=== PATIENT | male | born 1990 | race Hispanic/Latino ===

== ENCOUNTER 2017-08-14 17:56 | Emergency (ER) | payer MEDICARE ==
[2017-08-14] MEDS ORDERED: ONDANSETRON HCL 4 MG/2 ML VIAL ONE (18:37)
[2017-08-14] MEDS ORDERED: KETOROLAC TROMETHAMINE 30MG/ML ONE (18:37)
[2017-08-14 18:45] LABS: BASOPHILS % (AUTO) 0.3 % (0.0-5.0); EOSINOPHILS % (AUTO) 0.1 % (0.0-8.0); HEMATOCRIT 44.5 % (42-54); LYMPHOCYTES % (AUTO) 7.9 % (21.0-51.0); MEAN CORPUSCULAR HEMOGLOBIN 30.4 pg (27.0-33.0); MEAN CORPUSCULAR HGB CONC 35.4 g/dL (32.0-36.0); MEAN CORPUSCULAR VOLUME 85.9 fL (79-99); MONOCYTES % (AUTO) 6.3 % (3.0-13.0); NEUTROPHILS % (AUTO) 85.4 % (40.0-77.0); PLATELET COUNT (AUTO) 234 K/uL (130-400); RED BLOOD CELL COUNT(AUTO) 5.18 MIL/uL (4.50-6.20); RED CELL DISTRIBUTION WIDTH 13.6 % (11.0-15.5); WHITE BLOOD COUNT (AUTO) 15.5 K/uL (4.8-10.8)
[2017-08-14] MEDS ORDERED: SODIUM IV SCH (19:00)
[2017-08-14] MEDS ORDERED: CHLORIDE IV SCH (19:00)
[2017-08-14] MEDS ORDERED: VALPROIC ACID IV SCH (19:00)
[2017-08-14 19:16] LABS: ALBUMIN 3.4 g/dL (3.5-5.0); BILIRUBIN,TOTAL 0.7 mg/dL (0.2-1.0); CREATININE 1.3 mg/dL (0.5-1.5); MAGNESIUM 2.2 mg/dL (1.80-2.40); TOTAL PROTEIN, SERUM 6.3 g/dL (6.0-8.3)
[2017-08-14 19:18] LABS: POTASSIUM 2.9 mmol/L (3.5-5.1)
[2017-08-14] MEDS ORDERED: POTASSIUM BICARB/CIT AC 25 MEQ TABLET.EFF ONE (19:22)
[2017-08-14 20:04] LABS: BILIRUBIN,URINE Negative (NEGATIVE); COLOR,URINE Yellow (YELLOW); GLUCOSE, URINE (UA) Negative (NEGATIVE); KETONES,URINE Trace mg/dL (NEGATIVE); LEUKOCYTE ESTERASE ,URINE Negative (NEGATIVE); NITRATE,URINE Negative (NEGATIVE); OCCULT BLOOD,URINE Negative (NEGATIVE); PH,URINE 5.5 (5.0-8.0); PROTEIN,URINE Negative (NEGATIVE)
[2017-08-14 20:07] LABS: APPEARANCE,URINE CLOUDY (CLEAR)
[2017-08-14 20:11] LABS: AMPHET/METH SCREEN,URINE NEGATIVE (NEGATIVE); BARBITURATE SCREEN, URINE NEGATIVE (NEGATIVE); BENZODIAZEPINES SCREEN,URINE NEGATIVE (NEGATIVE); CANNABINOID SCREEN,URINE POSITIVE (NEGATIVE); COCAINE SCREEN,URINE POSITIVE (NEGATIVE); OPIATE SCREEN,URINE NEGATIVE (NEGATIVE); PHENCYCLIDINE SCREEN,URINE NEGATIVE (NEGATIVE)
[2017-08-14 20:16] LABS: AMORPHOUS SEDIMENT,UR Moderate /LPF (None Seen); BACTERIA,URINE Few /HPF (None Seen); RBC,URINE 0-1 /HPF (0-1); WBC,URINE 0-1 /HPF (0-1)
[2017-08-14 20:17] LABS: SQUAMOUS EPITHELIAL CELL,UR None Seen /HPF (0-2)
== END 2017-08-14 20:41 | disposition home or self-care (01) ==
LOC: EDH 17:56
DX: G40.89 Other seizures (principal); F14.10 Cocaine abuse, uncomplicated; E87.6 Hypokalemia; R51 Headache; F41.9 Anxiety disorder, unspecified; F31.9 Bipolar disorder, unspecified; Z72.0 Tobacco use
CPT/HCPCS: 36415; 70450; 80053; 80305; 81001; 82550; 83735; 85025; 87040 ×2; 87186; 96365; 96375; 99285; J1885; J2405

== ENCOUNTER 2024-07-11 02:02 | Observation (INO) | payer MEDICARE, OTHER ==
[2024-07-11] VITALS (23 sets, daily range): BP systolic 90–127; BP diastolic 47–81; PULSE 61–103; RESP 14–24; TEMP 97.7–99.3; O2SAT 95–98
[~2024-07-11] VITALS: Ht 170.2 cm; Wt 65.8 kg
[2024-07-11] MEDS: LACTATED RINGERS 1000ML 1,000 ML IV ONE (02:38)
[2024-07-11 02:39] LABS: BASOPHILS # (AUTO) 0.02 K/uL (0.00-0.20); BASOPHILS % (AUTO) 0.3 % (0.0-5.0); EOSINOPHILS # (AUTO) 0.03 K/uL (0.00-0.70); EOSINOPHILS % (AUTO) 0.4 % (0.0-8.0); IMMATURE GRANULOCYTE ABSOLUTE 0.03 K/uL (0-1); LYMPHOCYTES # (AUTO) 1.3 K/uL (1.0-4.8); LYMPHOCYTES % (AUTO) 18.2 % (21.0-51.0); MEAN CORPUSCULAR HEMOGLOBIN 30.4 pg (27.0-33.0); MEAN CORPUSCULAR HGB CONC 33.3 g/dL (32.0-36.0); MEAN CORPUSCULAR VOLUME 91.1 fL (79-99); MONOCYTES # (AUTO) 0.6 K/uL (0.1-1.0); MONOCYTES % (AUTO) 8.2 % (3.0-13.0); NEUTROPHILS % (AUTO) 72.5 % (40.0-77.0); PLATELET COUNT (AUTO) 184 K/uL (130-400); RED BLOOD CELL COUNT(AUTO) 4.28 MIL/uL (4.50-6.20); WHITE BLOOD COUNT (AUTO) 6.9 K/uL (4.8-10.8)
--- NOTE | 2024-07-11 02:45 | ERN ---
General Chief Complaint: Seizure Stated Complaint: SEIZURE X 2, < 1 MIN DURATION Time Seen by MD: 02:22 Source: patient, family History of Present Illness Initial Comments Patient is a 33-year-old male who has had seizures since he was 17 or 18 years o ld. He is seeing a neurologist right now. Currently he is taking Depakote. He has taken Keppra in the past but had a bad reaction to it, same for Dilantin. He has seizures in the past if he does not take his medications other things that can set it off are substance abuse drinking flashing lights. Patient was at a [employer] where there were flashing lights. Patient has an abrasion and a bruise on his left forehead. ights and he did say he had two beers. Timing/Duration: 1 hour Severity: mild Allergies: Coded Allergies: No Known Drug Allergies (Verified Allergy, Unknown, 08/14/17) Past Medical History Past Medical History: Seizure Past Surgical History: Other Surgical History Other: PNEUMOTHORAX ROS Dictation Patient has loss of memory over the times of the seizures. But other than that he has a negative review of systems. No constitutional symptoms, no fevers, no upper respiratory tract infections, no abdominal pain, no painful urination, no change in his bowel movements, no chills,. He moves all his extremities. Physical Exam General Appearance: (+) no apparent distress Orientation: (+) alert Head/Face Trauma: Yes Face Comment Patient has bruising and a hematoma on his left forehead. Eye: bilateral eye normal inspection, bilateral eye PERRL, bilateral eye EOMI Ear, Nose, Throat: (+) hearing grossly normal, (+) normal ENT inspection Neck: (+) normal inspection, (+) supple, (+) full range of motion Respiratory: (+) chest non-tender, (+) lungs clear, (+) well ventilated Heart: (+) regular, (+) no gallop Vascular: (+) no edema Gastrointestinal: (+) soft, (+) non-tender, (+) no organomegaly Genital: (+) normal exam Results Laboratory and Microbiology Lab and Micro Result Laboratory Tests Test 07/11/24 02:31 White Blood Count 6.9 K/uL (4.8-10.8) Red Blood Count 4.28 MIL/uL (4.50-6.20) L Hemoglobin 13.0 g/dL (14.0-18.0) L Hematocrit 39.0 % (42-54) L Mean Corpuscular Volume 91.1 fL (79-99) Mean Corpuscular Hemoglobin 30.4 pg (27.0-33.0) Mean Corpuscular Hemoglobin Concent 33.3 g/dL (32.0-36.0) Red Cell Distribution Width 13.0 % (11.0-15.5) Platelet Count 184 K/uL (130-400) Mean Platelet Volume 9.4 fL (7.5-10.5) Immature Granulocyte % (Auto) 0.4 % (0-1) Neutrophils (%) (Auto) 72.5 % (40.0-77.0) Lymphocytes (%) (Auto) 18.2 % (21.0-51.0) L Monocytes (%) (Auto) 8.2 % (3.0-13.0) Eosinophils (%) (Auto) 0.4 % (0.0-8.0) Basophils (%) (Auto) 0.3 % (0.0-5.0) Neutrophils # (Auto) 5.0 K/uL (1.8-7.7) Lymphocytes # (Auto) 1.3 K/uL (1.0-4.8) Monocytes # (Auto) 0.6 K/uL (0.1-1.0) Eosinophils # (Auto) 0.03 K/uL (0.00-0.70) Basophils # (Auto) 0.02 K/uL (0.00-0.20) Absolute Immature Granulocyte (auto 0.03 K/uL (0-1) Nucleated Red Blood Cells 0.0 % (0.0-0.19) Sodium Level 140 mmol/L (136-145) Potassium Level 3.8 mmol/L (3.5-5.1) Chloride Level 101 mmol/L (101-111) Carbon Dioxide Level 25 mmol/L (21-32) Blood Urea Nitrogen 10 mg/dL (7-18) Creatinine 1.2 mg/dL (0.5-1.3) Glomerular Filtration Rate Calc 81 mL/min (>90) Random Glucose 104 mg/dL (70-105) Total Calcium 9.2 mg/dL (8.5-10.1) Valproic Acid (Depakene) Level 65 mcg/mL (50-100) # MDM I will order a CBC and a BMP to check for infection and also for electrolyte disturbances is the inciting cause of his seizure. In additional check his Depakote levels I will do a urinary tox screen a blood alcohol level and a CT head. While the patient was in the emergency room he had another seizure. We gave him 2 mg of IV Versed. Patient's chest x-ray does shows some possible infiltrates on the left. Patient's head CT scan is negative for bleeds hydrocephalus elevated ICP or fracture. Patient's valproic acid was within therapeutic levels. Blood alcohol level is still pending. In either case patient needs to be admitted given that he has had three seizures while therapeutic on his medications and required Versed to control his latest seizure. I discussed the patient with the hospitalists who agree to admit him to the hospital. Blood alcohol level is still pending ED Course Orders Procedure Category Date Status Time Cbc With Differential LAB 07/11/24 Complete 02:23 Ct Head/Brain W/O CT 07/11/24 Taken Contrast 02:23 Lactated Ringers PHA 07/11/24 In Process 1000ml (Lactated 02:30 Basic Metabolic Panel LAB 07/11/24 Complete 02:23 Valproic Acid LAB 07/11/24 Complete 02:23 Chest 1vw RAD 07/11/24 Taken 02:28 Alcohol, Blood LAB 07/11/24 Logged 02:45 Midazolam Hcl (Versed) PHA 07/11/24 Complete 03:00 Midazolam Hcl (Versed) PHA 07/11/24 Complete 02:51 Current Medications Medications (Trade) Dose Ordered Sig/Niki Route PRN Reason Start Time Stop Time Status Last Admin Dose Admin Lactated Ringer's 1,000 ml @ 125 mls/hr ONCE ONCE IV 07/11/24 02:30 07/11/24 10:29 07/11/24 02:38 Midazolam HCl (Versed) 2 mg ONCE ONCE IVP 07/11/24 03:00 07/11/24 03:01 DC 07/11/24 02:55 Midazolam HCl (Versed) 2 mg STK-MED ONCE .ROUTE 07/11/24 02:51 07/11/24 02:52 DC Vital Signs Date Time Temp Pulse Resp B/P (MAP) Pulse Ox O2 Delivery O2 Flow Rate FiO2 07/11/24 02:16 98.2 87 14 110/75 100 Room Air* 0 21 07/11/24 02:03 98.1 101 16 122/68 98 Room Air 0 DX & DISP Disposition: Inpatient Departure Impression: Primary Impression: Seizure Condition: Stable Referrals: SELF,REFERRAL (PCP) KELSEY MILLER MD Jul 11, 2024 02:45
[2024-07-11 02:48] LABS: CREATININE 1.2 mg/dL (0.5-1.3); POTASSIUM 3.8 mmol/L (3.5-5.1)
--- NOTE | 2024-07-11 02:54 | NUR ---
PT HAD EPISODE OF SEIZURE LASTING APPROX 30 SECONDS. PER ED MD, ADMINISTER 2MG VERSED IVP X1.
[2024-07-11] MEDS: MIDAZOLAM HCL 1 MG/ML 2ML VIAL IVP ONE ×2 (02:55→05:07)
[2024-07-11] MEDS: MIDAZOLAM HCL 1 MG/ML 2ML VIAL ONE (02:55)
--- NOTE | 2024-07-11 02:59 | NUR ---
PT UNSTABLE, RN WILL CALL AND BRING PT WHEN PT IS STABLE
--- NOTE | 2024-07-11 04:57 | NUR ---
PT HAD ANOTHER EPISODE OF SEIZURE LASTING APPROX. 20SECONDS. HOSPITALIST RECTIFICATION PRINTER MADE AWARE. PER HOSPITALIST RECTIFICATION PRINTER, ADMINISTER 2MG VERSED IVP AND KEPPRA 1000MG IV.
[2024-07-11] MEDS: leveTIRACEtam 500 MG/5 ML SD VIAL IV ONE ×2 (05:05)
--- NOTE | 2024-07-11 05:44 | HP ---
[facility] HISTORY AND PHYSICAL Date of Service: Jul 11, 2024 Time of Service: 05:44 Attending/supervising physicians: Dr. Moore and Dr. Virk HISTORY OF PRESENT ILLNESS: Mr. Caballero is a 33-year-old male who presented to [facility] ED for evaluation of seizures. Per ED report the patient has had seizures in his17 or 18 years old and is seeing a neurologist. The patient is currently on Depakote. He has not been taking Keppra due to it making him very drowsy & feels like a zombie. Per mother at bedside the levels were high adverse effects and "he started acting like an 7-year-old". He also does not take Dilantin due to adverse effects. Per ED physician the patient's seizures are triggered with not taking his medications, alcohol, substance abuse, and flashing lights. ED physician that today the patient was added dance where he was drinking alcohol and they were flashing lights which triggered his seizures. On arrival to ED the patient reported he had two beers, had abrasions and bruising on his left forehead. ED provider reported that while the patient was in the ED he had another seizure and was given Versed2 mg IV. ED provider reports that given that the patient had three seizures while on therapeutic valproic acid and required Versed to control his latest seizure. The patient was admitted under the [facility] team with the diagnosis of seizure. CT head: No acute intracranial process identified. Chest x-ray: Negative. Valproic acid 65, serum alcohol <3. No urine has been provided. GFR 81. Hemoglobin 13.0, hematocrit 39.0, RBC 4.28. I went to assess the patient at bedside in ED 11. The patient was drowsy and is status post 2nd dose of Versed 2 mg administration due to his 2nd seizure in the ED. the patient's breathing was even, unlabored, in no distress. The mother was at bedside. I answered her multiple questions. I informed her of plan of care. She verbalized understanding and is in agreement with the plan. Plan and assessment are listed below. REVIEW OF SYSTEMS Unable to obtain ROS from patient due to drowsiness from Versed. PAST MEDICAL HISTORY: As mentioned above PAST SURGICAL HISTORY: Pneumothorax PAST SOCIAL HISTORY: Alcohol use FAMILY HISTORY: Noncontributory Coded Allergies: No Known Drug Allergies (Verified Allergy, Unknown, 08/14/17) PHYSICAL EXAM GENERAL APPEARANCE: The patient is awake, alert, and oriented, in no acute cardiopulmonary distress. NEUROLOGICAL: Drowsy s/p Versed. HEENT: Face is symmetric. Pupils are equal and reactive. Extraocular movements are intact. NECK: Supple. No JVD. No thyromegaly. No submental, submandibular, pre- /postauricular, occipital or supraclavicular lymphadenopathy. CHEST: Normal chest expansion. No Telemetry. LUNGS: Absence of any rales, rhonchi or any wheezing. CARDIOVASCULAR: Regular. S1 and S2 normal. No appreciable rubs, murmurs or gallops. ABDOMEN: Soft, nontender, and nondistended. There is no rebound, voluntary guarding, or rigidity. : Deferred. No Giraldo. EXTREMITIES: Non-edematous and not cyanotic. No clubbing. Good capillary refill. SKIN: No skin breakdown. Vital Sign (Last 24 Hours) 07/11/24 02:16 Temp 98.2 Pulse 87 Resp 14 B/P (MAP) 110/75 Pulse Ox 100 O2 Delivery Room Air* O2 Flow Rate 0 FiO2 21 LABS: Laboratory: Test 07/11/24 02:31 Range/Units White Blood Count 6.9 4.8-10.8 K/uL Red Blood Count 4.28 L 4.50-6.20 MIL/uL Hemoglobin 13.0 L 14.0-18.0 g/dL Hematocrit 39.0 L 42-54 % Mean Corpuscular Volume 91.1 79-99 fL Mean Corpuscular Hemoglobin 30.4 27.0-33.0 pg Mean Corpuscular Hemoglobin Concent 33.3 32.0-36.0 g/dL Red Cell Distribution Width 13.0 11.0-15.5 % Platelet Count 184 130-400 K/uL Mean Platelet Volume 9.4 7.5-10.5 fL Immature Granulocyte % (Auto) 0.4 0-1 % Neutrophils (%) (Auto) 72.5 40.0-77.0 % Lymphocytes (%) (Auto) 18.2 L 21.0-51.0 % Monocytes (%) (Auto) 8.2 3.0-13.0 % Eosinophils (%) (Auto) 0.4 0.0-8.0 % Basophils (%) (Auto) 0.3 0.0-5.0 % Neutrophils # (Auto) 5.0 1.8-7.7 K/uL Lymphocytes # (Auto) 1.3 1.0-4.8 K/uL Monocytes # (Auto) 0.6 0.1-1.0 K/uL Eosinophils # (Auto) 0.03 0.00-0.70 K/uL Basophils # (Auto) 0.02 0.00-0.20 K/uL Absolute Immature Granulocyte (auto 0.03 0-1 K/uL Nucleated Red Blood Cells 0.0 0.0-0.19 % Sodium Level 140 136-145 mmol/L Potassium Level 3.8 3.5-5.1 mmol/L Chloride Level 101 101-111 mmol/L Carbon Dioxide Level 25 21-32 mmol/L Blood Urea Nitrogen 10 7-18 mg/dL Creatinine 1.2 0.5-1.3 mg/dL Glomerular Filtration Rate Calc 81 >90 mL/min Random Glucose 104 70-105 mg/dL Total Calcium 9.2 8.5-10.1 mg/dL Valproic Acid (Depakene) Level 65 # 50-100 mcg/mL Current Medications Medications (Trade) Dose Ordered Sig/Niki Route PRN Reason Start Time Stop Time Status Last Admin Dose Admin Midazolam HCl (Versed) 2 mg Q4HPRN PRN IVP SEIZURES 07/11/24 07:00 08/10/24 06:59 DIAGNOSTICS / RADIOLOGY: [ ] ASSESSMENT: Multiple seizures, despite therapeutic levels of valproic acid BIB, GFR 81 Anemia Noncompliant with Keppra due to reported adverse effects PLAN: Admit to ICU due to recurrent seizures with continuous cardiac, pulse oximetry, seizure precaution, aspiration precaution, and fall precaution. Downgrade once seizures are controlled. Start Keppra a 1000 mg IV x1 dose then Keppra 500 mg IV b.i.d. Continue home medications Depakote 25 mg p.o. daily. Consult with neurologist. We will follow neurologist's recommendations. Seizure precautions. Versed 2 mg IV p.r.n. seizures. (Ativan is back ordered at [facility]) Obtain urine for UA and urine drug screen. Obtain influenza and COVID swabs. Gentle IV hydration with LR. P.r.n. medications for: Pain management, nausea, vomiting, constipation, fever. Glucometer checks p.r.n.. Blood pressure checks every 4 hours and as needed. Reconcile home medications once available. Monitor renal and liver function. Monitor electrolytes and treat accordingly. Education on alcohol cessation. A.m. labs: CBC, BMP, Mag, phos, TSH, A1c. GI and DVT prophylaxis. ADVANCED CARE PLANNING 1. Which of the following were discussed? Hospice Care - No Therapeutic options - Yes Advance Directives - Yes Other discussions - 2. Discussed with who? Mother 3. Voluntary nature of this service was explained to the patient? Yes 4. Amount of time spent - _ Over 35 minutes 5. Reviewed by Physician? (if this service was performed by LILIBETH) Yes ATTESTATION BY PHYSICIAN I have seen and examined the patient. I reviewed the documentation, medical decision making, and treatment plan as noted by the mid-level provider above. I agree with the findings and plan of care. [facility] Jul 11, 2024 05:44
[2024-07-11] MEDS ORDERED: ondanSETRON 4MG INJ IVP PRN (06:00)
[2024-07-11] MEDS ORDERED: TEMAZepam 15 MG CAPSULE PO PRN (06:00)
[2024-07-11] MEDS ORDERED: hydrALAZine 20MG/ML VIAL IV PRN (06:00)
[2024-07-11] MEDS ORDERED: LACTULOSE 20 GM/30 ML UDCUP PO PRN (06:00)
[2024-07-11] MEDS ORDERED: doCUSate SODIUM 100 MG CAP PO PRN (06:00)
[2024-07-11] MEDS ORDERED: acetaMINOPHEN 650 MG SUPPOSITORY RC PRN (06:00)
[2024-07-11] MEDS ORDERED: MIDAZOLAM HCL 1 MG/ML 2ML VIAL IVP PRN (07:00)
--- NOTE | 2024-07-11 08:08 | HMCIMG ---
CT HEAD WITHOUT CONTRAST INDICATION: Seizures TECHNIQUE: Noncontrast axial helical CT images from the vertex through the skull base using 5 mm slice thickness without contrast material. CT was performed with one or more of the following dose reduction techniques: Automated exposure control, adjustment of the mA and/or kV according to patient size, or use of iterative reconstruction technique. COMPARISON: None FINDINGS: The cerebral and cerebellar hemispheres are age-appropriate in appearance. No evidence for abnormal extra-axial fluid collections or masses. The ventricles and sulci are normal in size and configuration. No evidence for intracranial parenchymal, epidural, or subdural hemorrhage, mass effect or midline shift. The fernandez-white matter differentiation is well preserved. No secondary evidence to suggest acute ischemia. The brainstem and cerebellum appear normal. The visualized orbits appear unremarkable. Mild right maxillary and ethmoid sinus mucosal thickening. Remainder of the visible paranasal sinuses and mastoid air cells are clear. The calvarium appears normal. IMPRESSION: No acute intracranial process identified.
--- NOTE | 2024-07-11 08:14 | HMCIMG ---
PORTABLE CHEST RADIOGRAPH INDICATION: fever COMPARISON: 11/09/2009 FINDINGS: cardiac monitor leads overlie the field of view. Heart size is normal. The pulmonary vascularity and bobby appear normal. No abnormal pulmonary parenchymal opacity or consolidation identified. No significant pleural effusion noted. No pneumothorax detected. IMPRESSION: No radiographic evidence for any acute cardiopulmonary process.
[2024-07-11] MEDS ORDERED: DIVA500T52 PO (08:56)
[2024-07-11] MEDS ORDERED: BENZ1TAB83 PO ×2 (08:56)
[2024-07-11] MEDS ORDERED: DIVA-78 PO (08:56)
[2024-07-11] MEDS: divALPRoex SOdium 250 MG TAB PO SCH (09:19)
--- NOTE | 2024-07-11 11:27 | CONS ---
CONSULTATION NOTE Date of Service: Jul 11, 2024 Reason for Consultation: Evaluation of seizures Requesting Physician: Dr. Moore HISTORY OF PRESENT ILLNESS: This is a very nice 33 years old right-handed gentleman who has a past medical history remarkable for epilepsy, recreational drug abuse including cocaine and alcohol who was admitted for evaluation and management of seizures. The patient's mother is at bedside and she states that the patient has previously been diagnosed with epilepsy and follows with a neurologist in [place] for his seizure management. He currently is taking valproic acid divalproex extended release 500 mg in the morning and 750 mg at night. According to the family member and he has been compliant with his medication. The patient was recently hospitalized in May at [facility] where he arrived after having four seizures. At that time the urine drug screen came back positive for cocaine. This time the patient had two seizures mostly described as a loss of consciousness in association with stiffness of bilateral upper extremities with no jerking movements eyes roll up with loss of consciousness no urinary incontinence bowel movements tongue biting or any other symptoms associated duration was 3-4 minutes with postictal confusion and disorientation. While in the emergency room the patient had two more seizures with the same semiology. The patient was given a loading dose of a 1000 mg IV x1 followed by Versed twice. The patient has been sleepy since then no seizure activity has been observed. Valproic acid level was 65 serum alcohol less than three. The patient's Depakote has continued to be given during this hospitalization and levetiracetam was started at 500 mg p.o. b.i.d.. Of note the patient was previously on levetiracetam (unknown dose), per family member her levels were toxic (unknown levels) and was acting childish and for that reason this was discontinued. REVIEW OF SYSTEMS CONSTITUTIONAL: Denies fever, chills, or fatigue. HEAD/FACE: No signs of trauma. EENT: Denies eye pain, blurred vision, double vision, or light sensitivity. RESPIRATORY: Denies shortness of breath, cough, wheezing CARDIOVASCULAR: Denies chest pain, palpitation, syncope GASTROINTESTINAL/ABDOMINAL: Denies abdominal pain, constipation, diarrhea, nausea or vomiting GENITOURINARY: Denies dysuria or hematuria. MUSCULOSKELETAL: Denies joint pain, tenderness, or trauma. INTEGUMENTARY: Denies rash or itchiness NEUROLOGICAL/PSYCH: Positive for change in mental status and seizures PAST MEDICAL HISTORY: Epilepsy, drug abuse PAST SURGICAL HISTORY: Noncontributory PAST SOCIAL HISTORY: Recreational drug abuse cocaine abuse FAMILY HISTORY: No family history of stroke or seizures Coded Allergies: No Known Drug Allergies (Verified Allergy, Unknown, 08/14/17) PHYSICAL EXAM Mental status: The patient is alert, attentive, and oriented. Speech is clear and fluent with good repetition, comprehension, and naming. Pt recalls 3/3 objects at 5 minutes. Cranial nerves: CN II: Visual marie are full to confrontation. CN III, IV, : At primary gaze, there is no eye deviation. CN V: Facial sensation is intact to pinprick in all 3 divisions bilaterally. Corneal responses are intact. CN VII: Face is symmetric with normal eye closure and smile. CN VIII: Hearing is normal to rubbing fingers CN IX, X: Palate elevates symmetrically. Phonation is normal. CN XI: Head turning and shoulder shrug are intact CN XII: Tongue is midline with normal movements and no atrophy. Motor: There is no pronator drift of out-stretched arms. Muscle bulk and tone are normal. Strength is full bilaterally. Reflexes: Reflexes are 2+ and symmetric at the biceps, triceps, knees, and ankles. Plantar responses are flexor. Sensory: Light touch, pinprick, position sense, and vibration sense are intact in fingers and toes. Coordination: Rapid alternating movements and fine finger movements are intact. There is no dysmetria on [id number] and [id number]. There are no abnormal or extran eous movements. Romberg is absent. Gait/Stance: Not evaluated Vital Sign (Last 24 Hours) 07/11/24 08:35 Temp 97.9 Pulse 80 Resp 18 B/P (MAP) 99/64 Pulse Ox 99 O2 Delivery Room Air* Non-Rebreather+ O2 Flow Rate 0 FiO2 100 LABS: Laboratory: Test 07/11/24 07:05 07/11/24 02:31 Range/Units Serum Alcohol < 3 0-10 mg/dL White Blood Count 6.9 4.8-10.8 K/uL Red Blood Count 4.28 L 4.50-6.20 MIL/uL Hemoglobin 13.0 L 14.0-18.0 g/dL Hematocrit 39.0 L 42-54 % Mean Corpuscular Volume 91.1 79-99 fL Mean Corpuscular Hemoglobin 30.4 27.0-33.0 pg Mean Corpuscular Hemoglobin Concent 33.3 32.0-36.0 g/dL Red Cell Distribution Width 13.0 11.0-15.5 % Platelet Count 184 130-400 K/uL Mean Platelet Volume 9.4 7.5-10.5 fL Immature Granulocyte % (Auto) 0.4 0-1 % Neutrophils (%) (Auto) 72.5 40.0-77.0 % Lymphocytes (%) (Auto) 18.2 L 21.0-51.0 % Monocytes (%) (Auto) 8.2 3.0-13.0 % Eosinophils (%) (Auto) 0.4 0.0-8.0 % Basophils (%) (Auto) 0.3 0.0-5.0 % Neutrophils # (Auto) 5.0 1.8-7.7 K/uL Lymphocytes # (Auto) 1.3 1.0-4.8 K/uL Monocytes # (Auto) 0.6 0.1-1.0 K/uL Eosinophils # (Auto) 0.03 0.00-0.70 K/uL Basophils # (Auto) 0.02 0.00-0.20 K/uL Absolute Immature Granulocyte (auto 0.03 0-1 K/uL Nucleated Red Blood Cells 0.0 0.0-0.19 % Sodium Level 140 136-145 mmol/L Potassium Level 3.8 3.5-5.1 mmol/L Chloride Level 101 101-111 mmol/L Carbon Dioxide Level 25 21-32 mmol/L Blood Urea Nitrogen 10 7-18 mg/dL Creatinine 1.2 0.5-1.3 mg/dL Glomerular Filtration Rate Calc 81 >90 mL/min Random Glucose 104 70-105 mg/dL Total Calcium 9.2 8.5-10.1 mg/dL Valproic Acid (Depakene) Level 65 # 50-100 mcg/mL DIAGNOSTICS / RADIOLOGY: CT scan of the head without contrast: Normal ASSESSMENT / PLAN: 1).- generalized unaware seizures/epilepsy with status epilepticus - not resolved the patient valproic acid level was within normal limits. The patient was added levetiracetam loading dose a 1000 mg followed by 5009 mg b.i.d.. Most likely was a provoked seizure due to drug abuse. Request a urine drug screen and evaluate for possible cocaine and amphetamines use. If positive then likely this was a provoked seizure and regardless if he is on levetiracetam he will very likely had another seizure if he continues doing recreational drugs as above. This was explained in details with the patient's mother who is at bedside and expressed understanding. For now continue levetiracetam 500 mg p.o. b.i.d. but this can be discontinued the UDS is positive. If negative then continue levetiracetam 500 mg p.o. b.i.d. and this can be switched to another seizure medication as an outpatient by his outpatient neurologist in [place]. Possible side effects of levetiracetam includes irritability aggressiveness agitation and this was explained to the patient's mom who expressed understanding. Thank you for your consultation I will sign off SALAZAR LUNDBERG MD Jul 11, 2024 11:27
[2024-07-11 12:39] LABS: SARS-CoV-2, RNA, NAAT NEGATIVE SARS CoV-2 (NEGATIVE)
[2024-07-11 12:46] LABS: INFLUENZA TYPE A Negative For Type A (NEGATIVE); INFLUENZA TYPE B Negative For Type B (NEGATIVE)
[2024-07-11] MEDS: acetaMINOPHEN 325 MG TAB PO PRN (13:17)
[2024-07-11 13:29] LABS: APPEARANCE,URINE CLEAR (CLEAR); BILIRUBIN,URINE NEGATIVE (NEGATIVE); COLOR,URINE LIGHT-YELLOW (YELLOW); GLUCOSE, URINE (UA) NEGATIVE (NEGATIVE); KETONES,URINE 5 mg/dL (NEGATIVE); LEUKOCYTE ESTERASE ,URINE NEGATIVE Leu/uL (NEGATIVE); NITRATE,URINE NEGATIVE (NEGATIVE); OCCULT BLOOD,URINE NEGATIVE (NEGATIVE); PH,URINE 6.5 (5.0-8.0); PROTEIN,URINE 10 mg/dL (NEGATIVE); UROBILINOGEN,URINE 0.2 mg/dL (0.2-1.0)
[2024-07-11 13:34] LABS: ADD UA MICROSCOPIC YES
[2024-07-11 13:36] LABS: AMPHET/METH SCREEN,URINE NEGATIVE (NEGATIVE); BARBITURATE SCREEN, URINE NEGATIVE (NEGATIVE); BENZODIAZEPINES SCREEN,URINE POSITIVE (NEGATIVE); CANNABINOID SCREEN,URINE POSITIVE (NEGATIVE); COCAINE SCREEN,URINE POSITIVE (NEGATIVE); OPIATE SCREEN,URINE NEGATIVE (NEGATIVE); PHENCYCLIDINE SCREEN,URINE NEGATIVE (NEGATIVE)
[2024-07-11 13:37] LABS: MUCUS,URINE RARE LPF (None Seen); WBC,URINE 0-1 /HPF (0-1)
--- NOTE | 2024-07-11 14:25 | NUR ---
REPORT AND CARE GIVEN TO MARU NURSE, ALL QUESTIONS ANSWERED, VITALS CHarted. no distress noted. pt alerts upon commands, mother herlinda torres made aware of transfer.
--- NOTE | 2024-07-11 18:18 | NUR ---
INITIAL/DCP HOME Met w pt and sig other this afternoon to discuss dcp. EC is mother Merlyn Maher [phone] or common law Lauren Olivas [phone]. Pt is visiting in the [place] from [facility] where he lives w sig other Lauren. He is currently staying w his mom in [place]. Preferred pharmacy is [facility]. Discharge goal is to return home. Addendum: 07/12/24 at 1821 by DARINEL LEDESMA CM Amended: Links added.
[2024-07-11] MEDS: leveTIRACEtam 500 MG/5 ML SD V 500 MG in 0.9%NACL 100ML 100 ML IV SCH (21:23)
[2024-07-12] VITALS: BP 104/61; PULSE 56; RESP 17; TEMP 98
[2024-07-12 04:00] VITALS: BP 105/71; PULSE 55; RESP 17; TEMP 97.4
[2024-07-12 05:20] LABS: HEMATOCRIT 38.2 % (42-54); MEAN CORPUSCULAR HEMOGLOBIN 30.9 pg (27.0-33.0); MEAN CORPUSCULAR HGB CONC 33.8 g/dL (32.0-36.0); MEAN CORPUSCULAR VOLUME 91.4 fL (79-99); RED BLOOD CELL COUNT(AUTO) 4.18 MIL/uL (4.50-6.20); RED CELL DISTRIBUTION WIDTH 12.8 % (11.0-15.5); WHITE BLOOD COUNT (AUTO) 7.7 K/uL (4.8-10.8)
[2024-07-12 05:39] LABS: CREATININE 1.1 mg/dL (0.5-1.3); PHOSPHORUS 4.1 mg/dL (2.5-4.9); POTASSIUM 3.7 mmol/L (3.5-5.1)
[2024-07-12 07:53] VITALS: BP 102/58; PULSE 85; RESP 18; TEMP 97.9
[2024-07-12 09:00] VITALS: O2SAT 100
[2024-07-12] MEDS ORDERED: COMPOUND IV MISC 1 EACH IVSOLN MISC PRN (09:30)
[2024-07-12 11:47] VITALS: BP 128/80; PULSE 108; RESP 19; TEMP 98.3
--- NOTE | 2024-07-12 12:30 | DS ---
Discharge Summary Hospital Course Summary: Mr. Martin is a 33-year-old male who presented to [facility] ED for evaluation of seizures. Per ED report the patient has had seizures in his17 or 18 years old and is seeing a neurologist. The patient is currently on Depakote. He has not been taking Keppra due to it making him very drowsy & feels like a zombie. Per mother at bedside the levels were high adverse effects and "he started acting like an 7-year-old". He also does not take Dilantin due to adverse effects. Per ED physician the patient's seizures are triggered with not taking his medications, alcohol, substance abuse, and flashing lights. ED physician that today the patient was added dance where he was drinking alcohol and they were flashing lights which triggered his seizures. On arrival to ED the patient reported he had two beers, had abrasions and bruising on his left forehead. ED provider reported that while the patient was in the ED he had another seizure and was given Versed2 mg IV. ED provider reports that given that the patient had three seizures while on therapeutic valproic acid and required Versed to control his latest seizure. The patient was admitted under the catalyst team with the diagnosis of seizure. CT head: No acute intracranial process identified. Chest x-ray: Negative. Valproic acid 65, serum alcohol <3. No urine has been provided. GFR 81. Hemoglobin 13.0, hematocrit 39.0, RBC 4.28. Patient was monitored closely in the ICU, he was doing good, he was started with Keppra [address] Pompa, recommended 500 mg BID, then continue home medications. Today patient is doing good, he has stable vital signs labs are within normal limits. Patient was educated on his substance abuse/recreational drug use. That this one will trigger his seizure. Patient verbalized und erstanding and is in agreement with the plan. Patient will continue with home medications. And he will follow up with his PCP in 2-3 days. Patient will follow up also with his neurologist in [place]. Animal Pathology Teacher(s): Dr. James Pompa- Neurologist Procedure(s): [facility] [address] [place] [address] [id number] IMAGING REPORT Signed PATIENT: ASIA MARTIN JR MR#: [id number] : 1990 SEX: M AGE: 33 LOCATION: EDHIP ORDER 4 STATUS: ADM IN REPORT#: [id number] SERVICE REASON: seizure ORDERING PHYSICIAN: KELSEY MILLER MD PROCEDURE: HEAD WO - CT HEAD/BRAIN W/O CONTRAST CT HEAD WITHOUT CONTRAST INDICATION: Seizures TECHNIQUE: Noncontrast axial helical CT images from the vertex through the skull base using 5 mm slice thickness without contrast material. CT was performed with one or more of the following dose reduction techniques: Automated exposure control, adjustment of the mA and/or kV according to patient size, or use of iterative reconstruction technique. COMPARISON: None FINDINGS: The cerebral and cerebellar hemispheres are age-appropriate in appearance. No evidence for abnormal extra-axial fluid collections or masses. The ventricles and sulci are normal in size and configuration. No evidence for intracranial parenchymal, epidural, or subdural hemorrhage, mass effect or midline shift. The fernandez-white matter differentiation is well preserved. No secondary evidence to suggest acute ischemia. The brainstem and cerebellum appear normal. The visualized orbits appear unremarkable. Mild right maxillary and ethmoid sinus mucosal thickening. Remainder of the visible paranasal sinuses and mastoid air cells are clear. The calvarium appears normal. IMPRESSION: No acute intracranial process identified. DICTATED BY: JOSTIN JOHNSON MD DATE: 07/11/24803 ELECTRONICALLY SIGNED BY: JOSTIN JOHNSON MD DATE: 07/11/24 08 [place] [id number] IMAGING REPORT Signed PATIENT: ASIA MARTIN JR MR#: [id number] : 1990 SEX: M AGE: 33 LOCATION: EDHIP ORDER 7 STATUS: ADM IN REPORT#: [id number] SERVICE 7 REASON: fever ORDERING PHYSICIAN: KELSEY MILLER MD PROCEDURE: CXR1VW - CHEST 1VW PORTABLE CHEST RADIOGRAPH INDICATION: fever COMPARISON: 11/09/2009 FINDINGS: net developer with wcf leads overlie the field of view. Heart size is normal. The pulmonary vascularity and bobby appear normal. No abnormal pulmonary parenchymal opacity or consolidation identified. No significant pleural effusion noted. No pneumothorax detected. IMPRESSION: No radiographic evidence for any acute cardiopulmonary process. 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 Discussed with patient regarding substance abuse and use that that provoke seizure and if he continues recreational drug use it will continue to provoke his seizures. Patient would like to continue his current medications from home Discharge Instructions: Follow up with neurologist in [place] Follow up with your PCP in 2-3 days Continue home medications Home Medications: Reported Medications Benztropine Mesylate (Benztropine Mesylate) 1 Mg Tablet, 1 MG PO HS, TAB 07/11/24 Divalproex Sodium (Divalproex Sodium) 500 Mg Tablet.dr, 750 MG PO HS, TAB 07/11/24 Benztropine Mesylate (Benztropine Mesylate) 1 Mg Tablet, 1 MG PO AM, TAB 07/11/24 Divalproex Sodium (Divalproex Sodium ER) 500 Mg Tab.er.24h, 500 MG PO AM, TAB 07/11/24 Continued Medications: Benztropine Mesylate (Benztropine Mesylate) 1 Mg Tablet 1 MG PO AM, TAB Benztropine Mesylate (Benztropine Mesylate) 1 Mg Tablet 1 MG PO HS, TAB Divalproex Sodium (Divalproex Sodium ER) 500 Mg Tab.er.24h 500 MG PO AM, TAB Divalproex Sodium (Divalproex Sodium) 500 Mg Tablet.dr 750 MG PO HS, TAB Time spent arranging discharge: 31-60 minutes ATTESTATION BY PHYSICIAN I have seen and examined the patient. I reviewed the documentation, medical decision making, and treatment plan as noted by the mid-level provider above. I agree with the findings and plan of care. Clotilde John MD, [facility] Jul 12, 2024 12:30
--- NOTE | 2024-07-12 12:32 | NUR ---
DISCHARGE DISCHARGE ORDERS OBTAINED FOR PATIENT TO BE DISCHARGED HOME. DISCHARGE INSTRUCTIONS AND DOCUMENTATION GIVEN TO PATIENT AND SIGNIFICANT OTHER AT BEDSIDE. BOTH VOICED UNDERSTANDING. PER PATIENT, ALREADY HAS SCHEDULED APPOINTMENT WITH NEUROLOGIST IN [place]. WILL FOLLOW UP. IV DISCONTINUED, CATHETER INTACT, NO S/S OF INFECTION NOTED TO SITE. PATIENT TOLERATED WELL. BANDS REMOVED. PENDING TRANSPORTATION.
--- NOTE | 2024-07-12 13:09 | NUR ---
DISCHARGE 1300 PATIENT LEFT VIA WHEELCHAIR, ACCOMPANIED BY . NO S/S OF DISTRESS NOTED.
== END 2024-07-12 13:00 | disposition home or self-care (01) ==
LOC: EDH 02:02 → EDHIP 05:00 → INTOOBSV 05:00 → OBSVTOIN 05:00 → 2BH 08:38 → 4CH 14:30
PROVIDERS: ADMIT Internal Medicine; ATTEND Internal Medicine
DX: G40.901 Epilepsy, unspecified, not intractable, with status epilepticus (principal); N17.9 Acute kidney failure, unspecified; D63.8 Anemia in other chronic diseases classified elsewhere; S00.83XA Contusion of other part of head, initial encounter; T42.6X5A Adverse effect of other antiepileptic and sedative-hypnotic drugs, initial encounter; F14.10 Cocaine abuse, uncomplicated; R40.0 Somnolence; Z20.822 Contact with and (suspected) exposure to COVID-19; Z91.148 Patient's other noncompliance with medication regimen for other reason; Z79.899 Other long term (current) drug therapy; Z98.890 Other specified postprocedural states; X58.XXXA Exposure to other specified factors, initial encounter; Y93.89 Activity, other specified; Y92.89 Other specified places as the place of occurrence of the external cause; Y99.8 Other external cause status
CPT/HCPCS: 99285; 96365; 70450; 71045; 87635; 96375; 96376 ×3; 80164; 80048 ×2; 80305; 85025; 87804 ×2; 81001; 36415 ×2; 83735; 84100; 85027; J7120; J1953 ×3; J2250 ×2; G0378; 96366

== ENCOUNTER 2024-11-13 18:12 | Emergency (ER) | payer OTHER ==
[~2024-11-13] VITALS: Ht 175.3 cm; Wt 72.6 kg
[~2024-11-13 18:12] MED LIST: BENZ1TAB83 PO; DIVA-134 PO; DIVA500T52 PO
--- NOTE | 2024-11-13 18:20 | NUR ---
SEIZURE PADS APPLIED TO BED, BILATERALLY
[2024-11-13] MEDS: 0.9%NACL 1000ML 1,000 ML IV ONE (18:23)
[2024-11-13 18:30] LABS: IMMATURE GRANULOCYTE ABSOLUTE 0.04 K/uL (0-1); NUCLEATED RED BLOOD CELLS 0.0 % (0.0-0.19); PLATELET COUNT (AUTO) 208 K/uL (130-400); RED BLOOD CELL COUNT(AUTO) 5.10 MIL/uL (4.50-6.20); RED CELL DISTRIBUTION WIDTH 12.9 % (11.0-15.5); WHITE BLOOD COUNT (AUTO) 9.5 K/uL (4.8-10.8)
--- NOTE | 2024-11-13 18:30 | ERN ---
General Chief Complaint: Seizure Stated Complaint: SEIZURE Time Seen by MD: 18:15 Source: patient History of Present Illness Initial Comments Patient is a 34-year-old male coming in having seizures. Per family member patient has a history of seizures but recently has been having more seizures than normal. Patient is a from the area and history is limited. Allergies: Coded Allergies: No Known Drug Allergies (Verified Allergy, Unknown, 08/14/17) Home Meds Reported Medications Benztropine Mesylate (Benztropine Mesylate) 1 Mg Tablet, 1 MG PO HS, TAB 07/11/24 Divalproex Sodium (Divalproex Sodium) 500 Mg Tablet.dr, 750 MG PO HS, TAB 07/11/24 Benztropine Mesylate (Benztropine Mesylate) 1 Mg Tablet, 1 MG PO AM, TAB 07/11/24 Divalproex Sodium (Divalproex Sodium ER) 500 Mg Tab.er.24h, 500 MG PO AM, TAB 07/11/24 Past Medical History Past Medical History: Seizure Past Surgical History: Other Surgical History Other: lung sx ROS Dictation Unable to perform due to the seizures Physical Exam Physical Exam Dictation VITAL SIGNS: Reviewed. GENERAL APPEARANCE: Disoriented having seizures HEAD AND FACE: Non-traumatic. EYES: PERRL, pink conjunctivas, eyelid no trauma, anterior chamber clear. EARS: Pinnas intact and no signs of trauma or erythema. Ear canals clear and no discharge. TMs no erythema. NOSE: No discharge, no bleeding. OROPHARYNX: Mouth normal, teeth no caries, tongue pink. Pharynx clear, no erythema. Tonsils no exudates, no abscesses noted. Mucous membrane moist. NECK: Supple, non-tender, no thyromegaly, no masses, no JVD, no bruits. BREAST: Deferred. CHEST: No tenderness, no crepitus, no paradoxical movement, no retractions. LUNGS: Clear, well-ventilated, symmetric, no rales, no wheezing, no rhonchi, no stridor, good breath sounds bilaterally. HEART: Regular rate, regular rhythm, no murmur, no gallops. VASCULAR: No peripheral edema. ABDOMEN: Soft, positive bowel sounds, nondistended, no guarding, nontender, no rebound, no masses no hepatomegaly, no splenomegaly, no De León's sign, no hernias. RECTAL: Deferred. GENITAL: Deferred. NEUROLOGICAL: Normal speech, gross motor function intact, gross sensory function intact. MUSCULOSKELETAL: Neck nontender, full range of motion, back nontender, full range of motion. EXTREMITIES: Nontender, full range of motion. SKIN: Color pink, dry, no turgor, no rash, no lacerations, no abrasions, no contusions. LYMPHATICS: Deferred. Results Laboratory and Microbiology Lab and Micro Result Laboratory Tests Test 11/13/24 18:17 11/13/24 18:38 11/13/24 18:57 11/13/24 19:50 White Blood Count 9.5 K/uL (4.8-10.8) Red Blood Count 5.10 MIL/uL (4.50-6.20) Hemoglobin 15.7 g/dL (14.0-18.0) Hematocrit 49.3 % (42-54) Mean Corpuscular Volume 96.7 fL (79-99) Mean Corpuscular Hemoglobin 30.8 pg (27.0-33.0) Mean Corpuscular Hemoglobin Concent 31.8 g/dL (32.0-36.0) L Red Cell Distribution Width 12.9 % (11.0-15.5) Platelet Count 208 K/uL (130-400) Mean Platelet Volume 9.6 fL (7.5-10.5) Immature Granulocyte % (Auto) 0.4 % (0-1) Neutrophils (%) (Auto) 51.1 % (40.0-77.0) Lymphocytes (%) (Auto) 36.6 % (21.0-51.0) Monocytes (%) (Auto) 10.4 % (3.0-13.0) Eosinophils (%) (Auto) 1.0 % (0.0-8.0) Basophils (%) (Auto) 0.5 % (0.0-5.0) Neutrophils # (Auto) 4.8 K/uL (1.8-7.7) Lymphocytes # (Auto) 3.5 K/uL (1.0-4.8) Monocytes # (Auto) 1.0 K/uL (0.1-1.0) Eosinophils # (Auto) 0.09 K/uL (0.00-0.70) Basophils # (Auto) 0.05 K/uL (0.00-0.20) Absolute Immature Granulocyte (auto 0.04 K/uL (0-1) Nucleated Red Blood Cells 0.0 % (0.0-0.19) Sodium Level 140 mmol/L (136-145) Potassium Level 3.9 mmol/L (3.5-5.1) Chloride Level 101 mmol/L (101-111) Carbon Dioxide Level 11 mmol/L (21-32) L Blood Urea Nitrogen 18 mg/dL (7-18) Creatinine 1.2 mg/dL (0.5-1.3) Glomerular Filtration Rate Calc 81 mL/min (>90) Random Glucose 121 mg/dL (70-105) H Lactic Acid Level 16.7 mmol/L (0.8-2.5) H Total Calcium 9.8 mg/dL (8.5-10.1) Total Creatine Kinase 103 U/L (21-232) # Troponin I High Sensitivity 21 ng/L (4-75) Salicylates Level 3.5 mg/dL (2.8-20.0) # Acetaminophen Level < 1 mcg/mL (10-29) L Influenza Type A Antigen Negative For Type A Influenza Type B Antigen Negative For Type B SARS-CoV-2, RNA, NAAT NEGATIVE SARS CoV-2 Valproic Acid (Depakene) Level 92 mcg/mL (50-100) # Blood Gas Specimen Type Arterial Arterial Blood pH 7.404 (7.350-7.450) Arterial Blood Partial Pressure CO2 34 mmHg (35-48) L Arterial Blood Partial Pressure O2 70.5 mmHg (83.0-108.0) L Arterial Blood HCO3 20.5 mmol/L (21.0-28.0) L Arterial Blood Oxygen Saturation 93.1 % (94.0-98.0) L Arterial Blood Base Excess -3.3 mmol/L (-2.0-3.0) L Hemoglobin (Blood Gas) 14.4 g/dL (13.5-17.5) Sodium (Blood Gas) 134 MMOL/L (136-145) L Bedside Potassium (Blood Gas) 4.2 MMOL/L (3.4-4.5) Bedside Chloride (Blood Gas) 104 MMOL/L (98-107) Bedside Glucose (Blood Gas) 83 MG/DL (65-95) Bedside Ionized Calcium (Blood Gas) 1.24 MMOL/L (1.15-1.33) Bedside Lactic Acid (Blood Gas) 2.04 MMOL/L (0.36-0.75) H Blood Gas Temperature 37.0 CELSIUS (35.5-37.0) Blood Gas Vent Mode RA (ROOM AIR) FiO2 21.0 % Blood Gas Specimen Comment RR RN SIRISHA Test 11/13/24 20:29 11/13/24 21:33 11/13/24 21:42 Procalcitonin < 0.05 ng/mL (0.05-0.5) L Urine Color COLORLESS (YELLOW) Urine Appearance CLEAR (CLEAR) Urine pH 5.5 (5.0-8.0) Urine Specific [place] 1.017 (1.001-1.031) Urine Protein NEGATIVE mg/dL (NEGATIVE) Urine Glucose (UA) NEGATIVE mg/dL (NEGATIVE) Urine Ketones 10 mg/dL (NEGATIVE) H Urine Occult Blood SMALL (NEGATIVE) H Urine Nitrate NEGATIVE (NEGATIVE) Urine Bilirubin NEGATIVE mg/dL (NEGATIVE) Urine Urobilinogen 0.2 mg/dL (0.2-1.0) Urine Leukocyte Esterase NEGATIVE Chepe/uL Urine RBC 2-5 /HPF (0-1) H Urine WBC 2-5 /HPF (0-1) H Urine Bacteria RARE /HPF (None Seen) Urine Opiates Screen NEGATIVE (NEGATIVE) Urine Barbiturates Screen NEGATIVE (NEGATIVE) Urine Phencyclidine Screen NEGATIVE (NEGATIVE) Urine Amphetamines Screen NEGATIVE (NEGATIVE) Urine Benzodiazepines Screen NEGATIVE (NEGATIVE) Urine Cocaine Screen NEGATIVE (NEGATIVE) Urine Marijuana (THC) Screen POSITIVE (NEGATIVE) H Lactic Acid Level 1.7 mmol/L (0.8-2.5) EKG/XRAY/US/CT/MRI EKG Comment 11/13/2024 time 6:17 p.m. Ventricular rate [address] wave elevation or depression MDM MDM: Differential diagnosis: History of seizures, grand mal seizure Rationale: Tests considered and ordered secondary to shared decision making include: Previous outside records reviewed: Old ER visits. Risk of complication and/or morbidity or mortality of patient management: None Medications-Per medication reconciliation Need for hospitalization: Patient does not meet criteria for hospitalization. Need for emergency major/minor surgery: No There are no social concerns with this patient. Prescription drug management Prescriptions will include symptomatic care Patient's prior external medical records from other ER visits were reviewed by me as indicated. Prior testing and results from previous visits were reviewed. Prior tests were taken into account with medical decision making and resource utilization, independent historian/historians were used to obtain complete medical history. I independently interpreted the test that were performed, results were reviewed by me and considered findings on radiology if ordered. Medical management and examination interpretation discussions were had by me with other qualified healthcare professionals as indicated for the patient's care. Patient's 1st labs showed a lactic acid of 17. And he had a serum bicarb level of 11. I ordered an ABG which surprisingly showed a normal pH with a pCO2 of 34 base excess of only -3.3 and a calculated serum bicarb of 20 with a lactic acid of two. Based on this arterial blood gas I opted not to intubate the patient. Additional labs coming back showed salicylates of normal Tylenol normal valproic acid was therapeutic patient was negative for opioids barbiturates PCP amphetamines benzos cocaine it was positive for THC. Patient's UA was negative for infection. Slowly the patient became more alert oriented following commands oriented towards place and name. He is in a postictal state I have called to transfer him to [facility] for further observations. ED Course Orders Procedure Category Date Status Time Cbc With Differential LAB 11/13/24 Complete 18:15 Blood Cult KATE 11/13/24 In Process 18:15 Urinalysis Profile LAB 11/13/24 Complete 18:15 Culture Urine KATE 11/13/24 In Process 18:15 Creatine Kinase, Total LAB 11/13/24 Complete 18:15 Troponin I High LAB 11/13/24 Complete Sensitivity 18:15 Lactic Acid LAB 11/13/24 Complete 18:15 Basic Metabolic Panel LAB 11/13/24 Complete 18:15 Covid Rna Naat LAB 11/13/24 Complete 18:15 Influenza Type A & B, LAB 11/13/24 Complete Rapid 18:15 Diazepam 5 Mg/Ml 2 Ml PHA 11/13/24 Complete Syg (Valium 5 Mg/M 18:30 0.9%Nacl 1000ml (Ns PHA 11/13/24 Complete 1000ml) 18:30 12 Lead Ekg Tracing- EKG 11/13/24 Logged Technical 18:26 Drug Screen Urine LAB 11/13/24 Complete 18:15 Rapid (Group A Strep) LAB 11/13/24 Logged 18:15 Arterial Blood Gas RT 11/13/24 Transmitted 19:18 Ethylene Glycol LAB 11/13/24 In Process 19:20 Etomidate 20mg Vial PHA 11/13/24 Complete (Amidate 20mg Vial) 20:00 Pharmacy PHA 11/13/24 Complete Communication 20:00 Fentanyl 1000mcg+Ns PHA 11/13/24 In Process 100ml (Fentanyl 1000 20:00 Midazolam 100mg-0.9% PHA 11/13/24 In Process Ns 100ml (Midazolam 20:00 Rocuronium [place] PHA 11/13/24 Complete (Zemuron) 20:00 Norepinephrin 4mg/Ns PHA 11/13/24 In Process 250ml (Levophed 4mg 20:00 Salicylate LAB 11/13/24 Complete 19:45 Acetaminophen LAB 11/13/24 Complete 19:45 Arterial Blood Gas LAB 11/13/24 Complete Arterial + 19:50 Chest 1vw RAD 11/13/24 Resulted 19:57 Valproic Acid LAB 11/13/24 Complete 20:10 Ct Head/Brain W/O CT 11/13/24 Resulted Contrast 20:42 Ct Chest W/O Contrast CT 11/13/24 Resulted 20:42 Procalcitonin LAB 11/13/24 Complete 20:45 Lactic Acid (Removed) LAB 11/13/24 Complete 21:33 Current Medications Medications (Trade) Dose Ordered Sig/Niki Route PRN Reason Start Time Stop Time Status Last Admin Dose Admin Diazepam (VALium 5 MG/ML 2 ML SYG) 10 mg ONCE ONCE IM 11/13/24 18:30 11/13/24 18:31 DC 11/13/24 18:22 Etomidate (Amidate 20mg Vial) 20 mg ONCE ONCE IVP 11/13/24 20:00 11/13/24 19:59 DC Fentanyl Citrate 100 ml @ 2.5 mls/hr PROTOCOL IV 11/13/24 20:00 11/20/24 19:59 Midazolam HCl (Midazolam 100mg-0.9% NS 100ml) 100 ml PROTOCOL IV 11/13/24 20:00 12/13/24 19:59 Norepinephrine 250 ml @ 0 mls/hr PROTOCOL IV 11/13/24 20:00 12/13/24 19:59 Pharmacy Profile Note (Pharmacy Communication) 1 each ONCE MISC 11/13/24 20:00 11/13/24 19:44 DC Rocuronium [place] (ZemuRON) 100 mg ONCE ONCE IV 11/13/24 20:00 11/13/24 19:59 DC Sodium Chloride 1,000 ml @ 0 mls/hr ONCE ONCE IV 11/13/24 18:30 11/13/24 18:31 DC 11/13/24 18:23 Vital Signs Date Time Temp Pulse Resp B/P (MAP) Pulse Ox O2 Delivery O2 Flow Rate FiO2 11/13/24 21:27 98.1 92 17 108/63 98 Room Air* 0 11/13/24 20:31 98.1 104 17 108/63 97 Room Air* 0 11/13/24 19:49 98.1 87 15 99/68 98 Room Air* 0 11/13/24 18:24 99.3 125 26 117/56 96 Non-Rebreather+ 15 100 DX & DISP Disposition: Transfer Departure Impression: Primary Impression: Seizure Condition: Stable Referrals: SELF,REFERRAL (PCP) SHAN SOSA MD Nov 13, 2024 18:30 KELSEY MILLER MD Nov 13, 2024 22:36
[2024-11-13 18:40] LABS: CREATININE 1.2 mg/dL (0.5-1.3); GLOMERULAR FILTR. RATE CALC 81.0 mL/min (>90); GLUCOSE,RANDOM 121.0 mg/dL (70-105); SODIUM SERUM 140.0 mmol/L (136-145); UREA NITROGEN, BLOOD 18.0 mg/dL (7-18)
[2024-11-13 18:45] LABS: CREATINE KINASE, TOTAL 103.0 U/L (21-232)
--- NOTE | 2024-11-13 19:01 | NUR ---
DR. SOSA INFORMED THAT PT WAS TAKEN TO CT BUT THEY WERE UNABLE TO COMPLETE CT OF HEAD PT IS TOO CONFUSED TO REMAIN STILL FOR IMAGING AND IMAGING THAT THEY DID OBTAIN HAD TOO MUCH ARTIFACT. DR. SOSA STATES WE WILL OBSERVE FOR MENTAL IMPROVEMENT AND RETRY AT LATER TIME
[2024-11-13 19:06] LABS: SARS-CoV-2, RNA, NAAT NEGATIVE SARS CoV-2 (NEGATIVE)
[2024-11-13 19:17] LABS: INFLUENZA TYPE A Negative For Type A (NEGATIVE); INFLUENZA TYPE B Negative For Type B (NEGATIVE)
[2024-11-13 19:52] LABS: ABG BASE EXCESS -3.3 mmol/L (-2.0-3.0); ABG HCO3 20.5 mmol/L (21.0-28.0); ABG OXYGEN SATURATION 93.1 % (94.0-98.0); ABG PCO2 34 mmHg (35-48); ABG PH 7.404 (7.350-7.450); CARBON MONOXIDE 0.9 % (0.5-1.5); DEVICE COMMENT RR RN MICHALE; PO2, ARTERIAL BG 70.5 mmHg (83.0-108.0); TEMPERATURE, CELSIUS BG 37.0 CELSIUS (35.5-37.0); VENT MODE, BG RA (ROOM AIR)
[2024-11-13] MEDS ORDERED: MIDAZOLAM 100MG-0.9% NS 100ML 100ML BAG IV SCH (20:00)
[2024-11-13] MEDS ORDERED: ETOMIDATE 20MG VIAL IVP ONE (20:00)
[2024-11-13] MEDS ORDERED: PHARMACY COMMUNICATION MISC SCH (20:00)
[2024-11-13] MEDS ORDERED: NOREPINEPHRIN 4MG/NS 250ML 250 ML IV SCH (20:00)
--- NOTE | 2024-11-13 20:59 | HMCIMG ---
EXAM: CR Chest, 1 View. CLINICAL HISTORY: hypoxia COMPARISON: None provided. FINDINGS: LUNGS: There is no mass, infiltrate, or acute pulmonary abnormality. PLEURAL SPACES: No pleural effusion or pneumothorax. MEDIASTINUM: Cardiac size and mediastinal contours within normal limits. BONES: No acute osseous abnormality. IMPRESSION: No acute cardiopulmonary pathology is evident. /[place]
--- NOTE | 2024-11-13 21:58 | NUR ---
TRANSFER CALL PLACED TO [facility] TO INITIATE TRANSFER TO ICU FOR NEUROLOGY SERVICES
--- NOTE | 2024-11-13 21:59 | HMCIMG ---
EXAM: CT Head Without IV contrast. CLINICAL HISTORY: Seizure. TECHNIQUE: Axial computed tomography images of the head/brain without intravenous contrast. COMPARISON: Compared to prior CT brain dated july 11, 2024. FINDINGS: BRAIN: No evidence of acute hemorrhage. No mass lesion. No CT evidence for acute territorial infarct. No midline shift or extra-axial collections. VENTRICLES: No hydrocephalus. ORBITS: The orbits are unremarkable. SINUSES AND MASTOIDS: The paranasal sinuses and mastoid air cells are clear. BONES: No fracture. SOFT TISSUES: Unremarkable. IMPRESSION: No acute intracranial abnormality. Recommend MRI brain. /[place]
[2024-11-13 22:10] LABS: ADD UA MICROSCOPIC YES; APPEARANCE,URINE CLEAR (CLEAR); GLUCOSE, URINE (UA) NEGATIVE (NEGATIVE); LEUKOCYTE ESTERASE ,URINE NEGATIVE Leu/uL (NEGATIVE); NITRATE,URINE NEGATIVE (NEGATIVE); OCCULT BLOOD,URINE SMALL (NEGATIVE)
--- NOTE | 2024-11-13 22:14 | HMCIMG ---
EXAM: CT Chest Without IV contrast CLINICAL HISTORY: Patient presents with seizure. TECHNIQUE: Axial computed tomography images of the chest without intravenous contrast. COMPARISON: Chest radiograph dated November 13, 2024. FINDINGS: LUNGS: Subsegmental atelectasis in bilateral lung bases. No pulmonary mass. PLEURAL SPACES: No pneumothorax. No pleural effusion. HEART: No cardiomegaly. No significant pericardial effusion. LYMPH NODES: No lymphadenopathy is evident. UPPER ABDOMEN: The upper abdominal solid organs are unremarkable. BONES: No acute osseous abnormality. Degenerative osseous changes. Multilevel chronic compression fractures in the thoracic and upper lumbar vertebrae with mild reduction in vertebral body height. IMPRESSION: Subsegmental atelectasis in bilateral lung bases. No acute intra-thoracic abnormality is evident. /[place]
[2024-11-13 22:17] LABS: AMPHET/METH SCREEN,URINE NEGATIVE (NEGATIVE); BARBITURATE SCREEN, URINE NEGATIVE (NEGATIVE); CANNABINOID SCREEN,URINE POSITIVE (NEGATIVE); COCAINE SCREEN,URINE NEGATIVE (NEGATIVE)
--- NOTE | 2024-11-13 22:36 | NUR ---
TRANSFER PT. ACCEPTED @ 6020 BY KAM BHATTI MD FOR TRANSFER TO [facility] [place]. ROOM ASSIGNMENT AT THIS TIME: 1319. REPORT: [id number]
--- NOTE | 2024-11-13 22:49 | NUR ---
[facility] CALLED FOR TRANSPORT OF CARDIAC MONITORED SEIZURE PT.
--- NOTE | 2024-11-14 00:20 | NUR ---
[facility] AT BEDSIDE TO TRANSPORT PATIENT TO [facility]
[2024-11-14 00:25] VITALS: BP 103/63; PULSE 72; RESP 18; TEMP 98.2; O2SAT 98
--- NOTE | 2024-11-14 00:40 | NUR ---
REPORT GIVEN TO ULISES SHARP AT [facility] [id number]
--- NOTE | 2024-11-14 13:01 | EKG ---
[facility] Test Date: 2024-11-13 Test Time: 18:17:56 Pat Name: ASIA MARTIN Department: ED Patient ID: [id number] Room: Gender: M Manager Requirements: [facility] : 1990 Requested By: SHAN SOSA Order Number: [id number] Reading MD: Adnrea Dye Measurements Intervals [place] Rate: 134 P: 66 [place]: 132 QRS: 70 QRSD: 80 T: 66 QT: 278 QTc: 415 Interpretive Statements Sinus tachycardia LAE, consider biatrial enlargement Compared to ECG 07/22/2015 17:43:12 Sinus rhythm no longer present Electronically Signed On 11-15-2024 19:14:22 CDT by Andrea Dye Please click the below link to view image of tracing.
== END 2024-11-14 00:47 | disposition short-term general hospital (02) ==
LOC: EDH 18:12
DX: R56.9 Unspecified convulsions (principal); R09.02 Hypoxemia; Z20.822 Contact with and (suspected) exposure to COVID-19
CPT/HCPCS: 99285; 70450; 96360; 71045; 87635; 82947; 81001; 96372; 80164; 82550; 84484; 80048; 82803; 80305; 85025; 87040 ×2; 87086; 87804 ×2; 82693; 36415; 71250; 93005; 36600; 84145; 82435; 84132; 84295; 85018; 83605 ×3; G0481; J7030; J3360